=== PATIENT | male | born 1975 | race Caucasian/White ===

== ENCOUNTER 2020-03-01 10:02 | Emergency (ER) | payer OTHER ==
[~2020-03-01] VITALS: Ht 170.2 cm; Wt 70.3 kg
[2020-03-01 10:32] LABS: BASOPHILS 0.7 % (0.0-2.0); EOSINOPHILS 2.9 % (0.0-3.0); HEMOGLOBIN 15.8 gm/dL (14.0-18.0); LYMPHOCYTES 26.7 % (24.0-44.0); MCH 28.9 pg (26.0-34.0); MCHC 33.6 g/dL (28.0-37.0); MCV 85.9 fL (80.0-100.0); MONOCYTES 5.9 % (1.0-8.0); PLATELET COUNT 231 thou/uL (150-400); POLYS 63.8 % (36.0-66.0); RBC 5.47 mil/uL (4.50-6.00); RDW 15.2 % (10.5-14.5); WBC 7.8 thou/uL (4.0-11.0)
[2020-03-01 10:42] LABS: ANION GAP 9 mmol/L (7-16); BUN 13 mg/dL (7-18); CALCIUM 9.4 mg/dL (8.5-10.1); CHLORIDE 104 mmol/L (98-107); CO2 24 mmol/L (21-32); CREATININE 0.7 mg/dL (0.7-1.3); GLUCOSE 123 mg/dL (74-106); POTASSIUM 3.9 mmol/L (3.5-5.1); SODIUM 137 mmol/L (136-145)
[2020-03-01 10:50] LABS: MAGNESIUM 1.9 mg/dL (1.8-2.4); TROPONIN-I <0.06 ng/mL (<0.06)
[2020-03-01 12:09] VITALS: BP 125/69
[2020-03-01] MEDS ORDERED: ASA81BEC PO ×2 (13:03→13:27)
--- NOTE | 2020-03-01 13:26 | EKG ---
[facility] [place] [address] ELECTROCARDIOGRAM REPORT Name: PAVAN CASTILLONOHEMY Room #: REG [facility]..#: [id number] Admission: 03/01/20 Attend Phys: Discharge: Date of : 71 Report #: [id number] THIS REPORT FOR: cc: ELOY - Shayla family physician/PCP ELOY - Shayla family physician/PCP Marvin Blunt MD ~ THIS REPORT FOR: //name// [facility] ED Test Date: 2020-03-01 Test Time: 10:09:59 Pat Name: NOHEMY CASTILLO Department: Room: Gender: Medical Technologist Hematology: [facility] : 1975 Requested By: Bhumi Marinelli Order Number: [id number] MD: Marvin Blunt Measurements Intervals [place] Rate: 79 P: 44 PA: 137 QRS: 76 QRSD: 101 T: 26 QT: 369 QTc: 424 Interpretive Statements Sinus rhythm Baseline wander in lead(s) V5 No previous ECG available for comparison Electronically Signed On 03-01-2020 13:25:21 CDT by Marvin Blunt [email or web address] <ELECTRONICALLY SIGNED> By: Marvin Blunt MD 03/01/20 1325 1009 1009 Marvin Blunt MD /ANDREIA
--- NOTE | 2020-03-01 13:27 | EKG ---
[facility] [place] [address] ELECTROCARDIOGRAM REPORT Name: PAVANYO CASTILLONOHEMY Room #: REG [facility]..#: [id number] Admission: 03/01/20 Attend Phys: Discharge: Date of : 71 Report #: [id number] THIS REPORT FOR: cc: ELOY - Shayla family physician/PCP FAM - Shayla family physician/PCP Marvin Blunt MD ~ THIS REPORT FOR: //name// [facility] ED Test Date: 2020-03-01 Test Time: 11:42:18 Pat Name: NOHEMY CASTILLO Department: Room: Gender: Inspector [employer]ing: [facility] : 1975 Requested By: Bhumi Marinelli Order Number: [id number] MD: Marvin Blunt Measurements Intervals [place] Rate: 65 P: 44 NM: 132 QRS: 82 QRSD: 114 T: 19 QT: 390 QTc: 406 Interpretive Statements Sinus rhythm Borderline intraventricular conduction delay ST elev, probable normal early repol pattern No previous ECG available for comparison Electronically Signed On 03-01-2020 13:25:38 CDT by Marvin Blunt [email or web address] <ELECTRONICALLY SIGNED> By: Marvin Blunt MD 03/01/20 1321 1142 1142 Marvin Blunt MD /EPI
== END 2020-03-01 13:30 | disposition home or self-care (01) ==
LOC: ER 10:02
PROVIDERS: Emergency Medicine Emergency Medical Services
DX: R07.89 Other chest pain (principal)